=== PATIENT | female | born 1940 | race Caucasian/White ===

== ENCOUNTER → 2017-03-22 | Outpatient (CLI) | payer OTHER, MEDICARE | END | disposition home or self-care (01) | DX: M17.12 Unilateral primary osteoarthritis, left knee (principal); M25.562 Pain in left knee; Z74.1 Need for assistance with personal care | CPT/HCPCS: 97110 GP; 97150 GO; 97161 GP; 97165 GO; G8978 GP; G8979 GP; G8980 GP; G8987 GO; G8988 GO; G8989 GO ==

== ENCOUNTER 2018-01-24 10:08 | Inpatient (IN) | payer OTHER, MEDICARE ==
[~2018-01-24] VITALS: Ht 165.1 cm; Wt 79.0 kg
[~2018-01-24 10:08] MED LIST: ALIGN4 MG PO; ASPIR 8181 M1 PO; COLACE100 MG PO; COREG6.25 M1 PO; CYMBALTA60 MG PO; DESYREL100 MG PO; IRON325 M1 PO; LIPITOR10 MG PO; NEURONTIN300 MG PO; OMEPRAZOLE40 M1 PO; SYNTHROID100 MCG PO; VITAMIN D-32000 UNI2 PO
[2018-01-24 11:39] VITALS: BP 119/79
[2018-01-24] MEDS ORDERED: CORICIDIN HBP1 EAC4 PO (11:46)
[2018-01-24] MEDS ORDERED: DICLOFENAC SOD100 MG PO (11:49)
[2018-01-24 14:36] VITALS: BP 162/79
[2018-01-24 17:15] LABS: HEMATOCRIT 35.7 % (36.0-46.0); HEMOGLOBIN 11.2 G/DL (11.9-15.5); MCH 26.4 PG (29.0-34.0); MCHC 31.4 G/DL (30.0-36.0); MCV 84.2 FL (83-99); PLATELET COUNT 237 K/uL (156-360); RBC DIS.WIDTH-SD 39.4 % (39-53); RED BLOOD COUNT 4.24 M/uL (3.80-5.20); WHITE BLOOD COUNT 4.5 K/uL (4.1-10.2)
[2018-01-24 20:11] VITALS: BP 170/76
[2018-01-25 00:26] VITALS: BP 130/72
[2018-01-25 04:25] VITALS: BP 137/70
[2018-01-25 07:50] VITALS: BP 155/89
[2018-01-25 08:17] LABS: HEMATOCRIT 32.5 % (36.0-46.0); HEMOGLOBIN 10.3 G/DL (11.9-15.5); MCV 84.9 FL (83-99)
[2018-01-25 08:42] LABS: CHLORIDE 104 MEQ/L (99-109); CREATININE 1.2 MG/DL (0.6-1.3); GFR ESTIMATE (CALCULATED) 46 mL/min/; GLUCOSE 133 mg/dL (70-99); POTASSIUM 4.3 MEQ/L (3.7-5.4); SODIUM 139 MEQ/L (136-147); UREA NITROGEN (BUN) 20 mg/dL (9-23)
[2018-01-25 12:16] VITALS: BP 154/74
[2018-01-25 16:00] VITALS: BP 125/86
[2018-01-25 20:28] VITALS: BP 160/79
[2018-01-26 00:31] VITALS: BP 176/87
[2018-01-26 01:30] VITALS: BP 154/78
[2018-01-26 04:28] VITALS: BP 186/87
[2018-01-26 05:39] VITALS: BP 145/78
[2018-01-26 05:55] LABS: HEMOGLOBIN 10.7 G/DL (11.9-15.5); MCV 83.5 FL (83-99)
[2018-01-26 08:00] VITALS: BP 154/74
[2018-01-26] MEDS ORDERED: TRAMADOL HCL50 MG PO (08:57)
[2018-01-26] MEDS ORDERED: METHOCARBAMOL500 MG PO (08:57)
[2018-01-26] MEDS ORDERED: LOVENOX40 MG/0.4 SC (08:57)
[2018-01-26 12:00] VITALS: BP 151/87
== END 2018-01-26 14:01 | DRG 470 ==
LOC: 2SOUTH → 3WEST 10:51 → 2SOUTH 10:51 → ENRESERV 11:59 → 2SOUTH 14:52 → 3WEST 17:10
PROVIDERS: Orthopaedic Surgery
PROC: 0SRD0J9 Replacement of Left Knee Joint with Synthetic Substitute, Cemented, Open Approach (ICD-10-PCS; principal; 2018-01-24)
DX: M17.12 Unilateral primary osteoarthritis, left knee (principal); I10 Essential (primary) hypertension; E78.00 Pure hypercholesterolemia, unspecified; E03.9 Hypothyroidism, unspecified; F31.9 Bipolar disorder, unspecified; Z96.651 Presence of right artificial knee joint; Z96.641 Presence of right artificial hip joint; Z90.710 Acquired absence of both cervix and uterus; Z87.442 Personal history of urinary calculi; Z87.891 Personal history of nicotine dependence; Z82.49 Family history of ischemic heart disease and other diseases of the circulatory system; Z86.72 Personal history of thrombophlebitis
CPT/HCPCS: 73560; 80048; 85014; 85018; 85027; C1713; J0131; J1100; J1650; J1885; J2250; J2405; J2795; J7030; J7050; Q0175